=== PATIENT | female | born 1945 | race Caucasian/White ===

== ENCOUNTER → 2016-09-13 | Outpatient (CLI) | payer MEDICARE, BC ==
--- NOTE | ~2016-09-13 | BD1 ---
[facility] A Service [facility] RADIOLOGY TEXT RESULTS PATIENT: SHARON FELTON LOCATION: [facility] : 49 UNIT #: [id number] AGE: [address]: RAYMOND LO MD SEX: F ORDER DR: [id number] [facility]. [place], [place] [address] [id number] O MR#: [id number] Acc #: [id number] NAME: SHARON FELTON. : 1945 SEX: F STUDY DATE/TIME: 09/13/2016 12:12 UNIT: [facility] ROOM: STUDY DESCRIPTION: BD Dexa Bone Dens 1+ Site Attending Physician: Raymond Lo M.D. Referring Physician: Raymond Lo M.D. Ordering Physician: Raymond Lo M.D. Primary Care Physician: Raymond Lo M.D. MEDICAL IMAGING REPORT This report is preliminary unless electronic signature is present EXAM DXA scan. HISTORY Postmenopausal screening for osteoporosis. COMPARISON DXA scan 08/26/2014 and 08/10/2012 and 07/09/2010. FINDINGS Bone density was assessed utilizing a logic bone densitometer. Total bone density within the lumbar spine is calculated 1.255 g/cm2 with a T-score of 1.9. Total bone dense in the proximal left femur was calculated at 0.893 g/cm2 with a T-score of -0.4. When compared to the patient's prior studies, there has been no significant change from baseline. IMPRESSION Bone density within the lumbar spine and proximal left femur is greater than the mean and within normal limits according to World Health Organization criteria. Dictated by... Kendra Godfrey M.D. THIS IS AN ELECTRONICALLY VERIFIED REPORT Kendra Godfrey M.D. at 09/15/2016 8:30 PM Cristina TD: 09/13/2016 22:37 JOB #: [id number] MEDICAL IMAGING REPORT [facility] A Service [facility] RADIOLOGY TEXT RESULTS PATIENT: SHARON FELTON LOCATION: [facility] #: [id number] : 49 UNIT #: [id number] AGE: [address]: RAYMOND LO MD SEX: F ORDER DR: COPY
== END | disposition home or self-care (01) ==
LOC: CWCC 11:56
DX: Z13.820 Encounter for screening for osteoporosis (principal); E21.3 Hyperparathyroidism, unspecified
CPT/HCPCS: 77080

== ENCOUNTER → 2017-01-08 | Outpatient (CLI) | payer MEDICARE, BC ==
--- NOTE | ~2017-01-08 | MY29 ---
[facility] A Service of [facility] RADIOLOGY TEXT RESULTS PATIENT: SHARON FELTON LOCATION: [facility] : 49 UNIT #: [id number] AGE: [address]: Gaby Thomas MD SEX: F ORDER DR: [id number] [facility] [address] [place], [place] [address] [id number] O MR#: [id number] Acc #: [id number] NAME: SHARON FELTON. : 1945 SEX: F STUDY DATE/TIME: 01/08/2017 13:34 UNIT: [facility] ROOM: STUDY DESCRIPTION: MY CHRIS SCREENING W/ CAD BILAT Attending Physician: Gaby Thomas M.D. Referring Physician: Gaby Thomas M.D. Ordering Physician: Gaby Thomas M.D. Primary Care Physician: Marry Waddell M.D. MEDICAL IMAGING REPORT This report is preliminary unless electronic signature is present EXAM Digital screening mammogram 01/08/17, [facility]. HISTORY 71-year-old woman, no risk elevation. Annual screening. COMPARISON Comparison mammograms date to 09/13/2005, with most recent 12/05/2015. FINDINGS Digital imaging of each breast was completed utilizing a two-view examination of each breast in craniocaudal and mediolateral-oblique projections. Review and interpretation of digital mammograms include a second review in conjunction with FDA-approved CAD device. There is a normal parenchymal presentation bilaterally consistent with the patient's age. There are no breast masses imaged and no parenchymal asymmetry is visualized. There are no suspicious microcalcifications and I see no focal architectural disturbance. Breast parenchyma is fatty replaced. Loop recorder projects superior left breast location on MLO view. IMPRESSION Negative screening digital mammogram. One-year followup recommended. Patients over the age of 40 are entered into a reminder system with target due date for the next mammogram. A result letter will also be sent to the patient. BIRADS: 1 Negative Dictated by... [facility] A Service of [facility] RADIOLOGY TEXT RESULTS PATIENT: SHARON FELTON LOCATION: [facility] : 49 UNIT #: [id number] AGE: [address]: Gaby Thomas MD SEX: F ORDER DR: Francisco Villanueva M.D. THIS IS AN ELECTRONICALLY VERIFIED REPORT Francisco Villanueva M.D. at 01/08/2017 3:53 PM GIORGIO/joce TD: 01/08/2017 15:38 JOB #: [id number] MEDICAL IMAGING REPORT Page 1 of 1 COPY
== END | disposition home or self-care (01) ==
LOC: CWCC 13:14
DX: Z12.31 Encounter for screening mammogram for malignant neoplasm of breast (principal)
CPT/HCPCS: G0202